=== PATIENT | female | born 1990 | race Caucasian/White ===

== ENCOUNTER → 2023-12-11 14:42 | Outpatient (REF) | payer OTHER, SELFPAY | LOC: PNTC 14:42 | PROVIDERS: ATTENDING PHYSICIAN Obstetrics & Gynecology | DX: Z36.0 Encounter for antenatal screening for chromosomal anomalies (principal); Z36.82 Encounter for antenatal screening for nuchal translucency | CPT/HCPCS: 76801; 76813 ==

== ENCOUNTER 2024-06-17 13:49 | Inpatient (IN) | payer OTHER, SELFPAY ==
[2024-06-17 13:57] VITALS: BP 106/73; BMI 23.1
[2024-06-17 16:27] LABS: % Basophils 0.3 % (0-2); % Eosinophils 0.6 % (0-6); % Immature Granulocytes 0.4 % (0-0.5); % Lymphocytes 18.8 % (20.5-51.1); % Monocytes 6.2 % (1.7-9.3); % Neutrophils 73.7 % (42.2-75.2); Absolute Basophils 0.1 10^3/uL (0-0.2); Absolute Eosinophils 0.1 10^3/uL (0-0.7); Absolute Immature Granulocytes 0.1 10^3/uL (0-0.05); Absolute Neutrophils 11.6 10^3/uL (1.4-6.5); Hematocrit 36.5 % (37.0-47.0); Hemoglobin 13.1 g/dL (12.0-16.0); Mean Corp Hgb Conc. 35.9 g/dL (33.0-37.0); Mean Corpuscular Hgb 32.9 pg (27.0-31.0); Mean Corpuscular Volume 91.7 fL (81.0-99.0); Mean Platelet Volume 12.8 fL (7.4-10.4); Nucleated Red Blood Cells % 0 %; Platelet Count 147 10^3/uL (130-400); Red Blood Cell Count 3.98 10^6/uL (4.20-5.40); Red Cell Dist. Width 13.1 % (11.5-14.5); White Blood Cell Count 15.7 10^3/uL (4.8-10.8)
[2024-06-17] MEDS: SUBLIMAZE 100 MCG EPIDURAL (20:23)
[2024-06-17] MEDS: FENTANYL/BUPIVACAINE 100 EPIDURAL (20:24)
[2024-06-17] MEDS: PITOCIN 30 UNITS/NSS 500 ML IV (21:24)
[2024-06-18] MEDS: PITOCIN 30 UNITS/NSS 500 ML IV (03:52)
[2024-06-18] MEDS: MOTRIN 600 MG PO ×2 (05:07→15:50)
[2024-06-18] MEDS: TYLENOL 650 MG PO ×3 (05:47→20:19)
[2024-06-18] MEDS: PRENATAL PLUS 1 TABLET PO (07:55)
[2024-06-18] MEDS: SENOKOT-S 1 TABLET PO (07:55)
[2024-06-19] MEDS: MOTRIN 600 MG PO ×2 (00:01→08:32)
[2024-06-19 06:07] LABS: Hematocrit 29.2 % (37.0-47.0); Hemoglobin 10.3 g/dL (12.0-16.0)
[2024-06-19] MEDS: SENOKOT-S 1 TABLET PO (08:32)
[2024-06-19] MEDS: PRENATAL PLUS 1 TABLET PO (08:32)
--- NOTE | 2024-06-19 10:08 | CM ---
Addendum entered by Katheryn Gunter 06/19/24 11:32:
Per Agnieszka at [facility] fax - pump to be shipped today. Delivery within 24 hrs
Original Note:
Met with new parents Kay and Geoffrey at bedside
Mom confirmed address listed. Living in home with mom are son and daughter(5 and 7 yo)
Parents have named Gely Iniguez
Mom reports she has support from Dad and her family
Plans to breast feed - will need pump
Reports she has supplies for - including car seat and has crib/bassinet
[facility]eds - [facility] [place] [facility]
Mom reports she is currently in the WIC Program
Aware she needs to add infant to her insurance plan
Offered to refer to [facility] - declined. Given info - aware she can self refer if she changes her mind
Faxed Rx and facesheet to [facility] [phone]. Text sent to Agnieszka at [facility] - aware of pt needs
[2024-06-19 11:33] LABS: Syphilis/T. pallidum Ab Reflex Negative (Negative)
== END 2024-06-19 10:39 | disposition home or self-care (01) | DRG 806 ==
LOC: LDRP 13:49
PROVIDERS: ADMITTING PHYSICIAN Obstetrics & Gynecology; ATTENDING PHYSICIAN Obstetrics & Gynecology; FAMILY PHYSICIAN Internal Medicine
PROC: 10E0XZZ Delivery of Products of Conception, External Approach (ICD-10-PCS; 2024-06-18)
PROC: 10907ZC Drainage of Amniotic Fluid, Therapeutic from Products of Conception, Via Natural or Artificial Opening (ICD-10-PCS; 2024-06-18)
DX: O48.0 Post-term pregnancy (principal); O99.354 Diseases of the nervous system complicating childbirth; Z37.0 Single live birth; Z3A.40 40 weeks gestation of pregnancy; O69.81X0 Labor and delivery complicated by cord around neck, without compression, not applicable or unspecified; O76 Abnormality in fetal heart rate and rhythm complicating labor and delivery; G40.909 Epilepsy, unspecified, not intractable, without status epilepticus; O99.344 Other mental disorders complicating childbirth; F41.9 Anxiety disorder, unspecified; F32.A Depression, unspecified; Z88.8 Allergy status to other drugs, medicaments and biological substances; Z87.81 Personal history of (healed) traumatic fracture; Z87.891 Personal history of nicotine dependence
CPT/HCPCS: 36415; 85014; 85018; 85025; 86780; 86850; 86900; 86901